=== PATIENT | male | born 1955 | race Hispanic/Latino ===

== ENCOUNTER 2017-05-06 16:49 | Inpatient (IN) | payer SELFPAY ==
[2017-05-06 18:48] LABS: #Eosinphils 0.2 thou/uL (0.0-0.7); #Lymphocytes 2.4 thou/uL (1.20-3.40); #Monocytes 0.7 thou/uL (0.11-0.59); #Neutrophils 5.9 thou/uL (1.40-6.50); %Basophils 0.5 % (0.0-1.0); %Eosinophils 2.3 % (0.0-10.0); %Lymphocytes 25.5 % (21.0-51.0); %Monocytes 7.4 % (0.0-10.0); Hematocrit 46.3 % (42.0-52.0); Mean Platelet Volume 7.9 fL (7.4-10.4); Red Blood Cell (RBC) Count 5.27 mill/uL (4.70-6.10); White Blood Cell (WBC) Count 9.2 thou/uL (4.8-10.8)
[2017-05-06 19:03] LABS: Anion Gap 12 mmol/L (10-20); BUN (Urea Nitrogen) 17 mg/dL (8.4-25.7); Calc. Creatinine Clearance 0 mL/min (70-130); Calcium 9.8 mg/dL (7.8-10.44); Carbon Dioxide 30 mmol/L (23-31); Chloride 99 mmol/L (98-107); Estimated GFR-MDRD 86
[2017-05-06 19:06] LABS: Lactic Acid - Sepsis 1.4 mmol/L (0.5-2.2)
--- NOTE | 2017-05-06 19:10 | ULT ---
ULTRASOUND WITH DOPPLER DUPLEX VENOUS LOWER EXTREMITY RIGHT 05/06/17 CPT: 65780 ICD-10-PCS: B54D HISTORY: Erythema and edema. TECHNIQUE: Color flow Doppler, spectral waveform analysis of pulsed Doppler, and falcon-scale imaging with compre ssion and augmentation, were used to evaluate the right common femoral, femoral, popliteal, posterio r tibial, and superficial femoral, veins; and the proximal portions of the profunda femoral and grea ter saphenous, veins. FINDINGS: Appropriate compressibility and flow within the imaged deep vein system of the right lower extremity . IMPRESSION: No DVT. POS: RASHID
[2017-05-06] MEDS ORDERED: Vancomycin HCl 1.5 GM in Sodium Chloride 0.9% 250 ML 300 ML IVPB SCH (19:15)
[2017-05-06] MEDS ORDERED: Piperacillin/Tazobactam 4.5 GM in Sodium Chloride 0.9% 100 ML IVPB SCH (19:15)
[2017-05-06 19:42] LABS: Bilirubin Negative (Negative); Blood, Urine Trace (Negative); Glucose, Urine (Dipstick) >=1000 mg/dL (Negative); Ketone, Urine Negative (Negative); Nitrite Negative (Negative); Protein, Urine (Dipstick) 300 mg/dL (Neg-Trace); Urobilinogen 0.2 mg/dL (0.2-1.0)
[2017-05-06 19:44] LABS: Bacteria/HPF None Seen HPF (None Seen); Hyaline Casts/LPF 0-3 HYALINE CAST LPF (0-3 Hyaline); RBC/HPF 0-3 HPF (0-3); Squamous Epithelial None Seen HPF (0-3); WBC/HPF 0-3 HPF (0-3)
[2017-05-06 23:40] VITALS: BMI 36.4
[2017-05-07] MEDS: Piperacillin/Tazobactam 4.5 GM in Sodium Chloride 0.9% 100 ML IVPB SCH ×2 (03:11→09:57)
[2017-05-07] MEDS ORDERED: Dextrose 5% in Water 1,000 ML IV PRN (03:18)
[2017-05-07] MEDS ORDERED: Calcium Carbonate 500 MG ChewTAB PO PRN (03:18)
[2017-05-07] MEDS ORDERED: hydrALAZINE 20 MG/ML VIAL SLOW IVP PRN (03:18)
[2017-05-07] MEDS ORDERED: Dextrose 50% Abboject 50 ML SYRINGE SLOW IVP PRN (03:18)
[2017-05-07] MEDS ORDERED: HYDROcodone/Acetaminophen 5/325 mg Tablet PO PRN (03:18)
[2017-05-07] MEDS ORDERED: Ondansetron HCl/PF 4 MG/2 ML Vial IVP PRN (03:18)
[2017-05-07] MEDS ORDERED: Acetaminophen 325 MG TAB PO PRN (03:18)
[2017-05-07] MEDS ORDERED: Potassium Chloride 20 MEQ TAB PO SCH (03:30)
[2017-05-07] MEDS ORDERED: Vancomycin HCl 1 GM in Premix Bag 1 BAG IVPB SCH (03:30)
[2017-05-07] MEDS ORDERED: VANCOMYCIN IVPB PRN (03:31)
[2017-05-07] MEDS: Sodium Chloride 0.9% 1,000 ML IV SCH ×2 (03:40→17:11)
--- NOTE | 2017-05-07 05:25 | HP ---
CHIEF COMPLAINT: Right leg extremity pain and swelling. HISTORY OF PRESENT ILLNESS: This is a 62-year-old pleasant gentleman who was apparently in the [facility] until Wednesday when he started noticing some redness and swelling of right lower ext remity, it worsened on Wednesday and Wednesday, so he started taking his ciprofloxacin, which he had b rought from [place], apparently that did not work and hence, he came into the ER for further evaluati on and treatment. The patient denies any fever or chills. He states the pain is in the right lower extremity. The patient does not know exactly whether he had a bug bite or a scratch, but he though t that there could be aline in the skin which would have probably prompted the starting of the rednes s and the pain. The patient denies any fever, chills, nausea, vomiting, diarrhea, or dysuria right n ow. PAST MEDICAL HISTORY: Significant for diabetes, hypertension, hyperlipidemia, some anxiety, and dep ression. PAST SURGICAL HISTORY: Cholecystectomy. SOCIAL HISTORY: Does not smoke, drink, or do any recreational drugs. ALLERGIES: None. FAMILY HISTORY: Negative for diabetes and hypertension. MEDICATIONS: Include Norvasc, glipizide, Levemir, lisinopril, hydrochlorothiazide, simvastatin. REVIEW OF SYSTEMS: Significant for right lower extremity pain and redness. Patient has no fever, n o chills, no headache, no appetite, no hearing loss, no latencies. No cough, no chest pain, diarrhe a, dysuria, or polyuria. No memory or mood changes. No neck pain. PHYSICAL EXAMINATION: VITAL SIGNS: Blood pressure is 158/79, afebrile right now, pulse is 95, breathing comfortably on ro om air. GENERAL: Patient is lying in bed, in no apparent distress. HEENT: Atraumatic, normocephalic. Pupils equally round, react to light. Extraocular movements are intact. Mucous membranes are moist. NECK: Supple. No JVD. CHEST: Breath sounds. There are no rales or rhonchi. HEART: S1, S2. No murmurs or gallops. ABDOMEN: Soft. EXTREMITIES: Right lower extremity is swollen, tender, and erythematous. Distal pulses are palpabl e. Left leg is normal. NEUROLOGIC: Alert, awake, oriented. No cranial deficits. No sensorimotor deficits. LABORATORY DATA: WBC count is 9.2, hemoglobin is 15, potassium is 3.0, creatinine is 0.9. UA is ne gative. Doppler is negative for DVT. ASSESSMENT AND PLAN: 1. Right lower extremity cellulitis, failed outpatient treatment with Cipro. We will start vancomy irasema, Zosyn, do blood cultures, and give p.r.n. pain medications. 2. Hypokalemia, probably secondary to hydrochlorothiazide use. We will replace potassium. 3. Diabetes mellitus, put him on insulin sliding scale. 4. Hyperlipidemia, stable. 5. I will do Lovenox for deep venous thrombosis prophylaxis. I will follow the labs and do the need for.
[2017-05-07 06:15] LABS: #Basophils 0.1 thou/uL (0.0-0.2); #Eosinphils 0.3 thou/uL (0.0-0.7); #Lymphocytes 2.4 thou/uL (1.20-3.40); #Monocytes 0.6 thou/uL (0.11-0.59); #Neutrophils 6.1 thou/uL (1.40-6.50); %Basophils 0.6 % (0.0-1.0); %Eosinophils 2.8 % (0.0-10.0); %Lymphocytes 25.2 % (21.0-51.0); %Monocytes 6.7 % (0.0-10.0); Hematocrit 43.5 % (42.0-52.0); Mean Platelet Volume 7.4 fL (7.4-10.4); Red Blood Cell (RBC) Count 4.92 mill/uL (4.70-6.10); White Blood Cell (WBC) Count 9.4 thou/uL (4.8-10.8)
[2017-05-07] MEDS: HumaLOG 300 UNITS/3 ML VIAL SC PRN ×3 (06:17→17:00)
[2017-05-07 06:36] LABS: Anion Gap 11 mmol/L (10-20); BUN (Urea Nitrogen) 11 mg/dL (8.4-25.7); Calc. Creatinine Clearance 136 mL/min (70-130); Calcium 8.3 mg/dL (7.8-10.44); Carbon Dioxide 27 mmol/L (23-31); Chloride 102 mmol/L (98-107); Estimated GFR-MDRD Greater than 90; Magnesium 1.9 mg/dL (1.6-2.6)
[2017-05-07] MEDS ORDERED: Piperacillin/Tazobactam 4.5 GM in Sodium Chloride 0.9% 100 ML IVPB SCH (08:00)
[2017-05-07] MEDS: Lisinopril/Hydrochlorothiazide 20/25 mg Tablet PO SCH ×2 (08:27→20:14)
[2017-05-07] MEDS: Amlodipine 10 MG TAB PO SCH (08:27)
[2017-05-07] MEDS: metFORMIN 500 MG TAB PO SCH ×2 (08:27→16:56)
[2017-05-07] MEDS: Enoxaparin Sodium 40 MG/0.4 ML SYRINGE SC SCH (08:28)
[2017-05-07] MEDS ORDERED: FLU VACC QS2017-18 36 mo. & older 0.5 ML SYRINGE IM ONE (09:00)
[2017-05-07] MEDS: Vancomycin HCl 1.5 GM in Sodium Chloride 0.9% 250 ML 300 ML IVPB SCH ×2 (10:45→22:12)
[2017-05-07] MEDS: glipiZIDE 10 MG TAB PO SCH (16:56)
[2017-05-07] MEDS: Simvastatin 20 MG TAB PO SCH (20:14)
[2017-05-07] MEDS: Insulin Detemir 100 UNITS/ML 10 UNITS in Pre-Filled Syringe 1 EACH SC SCH (20:39)
[2017-05-07] MEDS ORDERED: Insulin Detemir 100 UNITS/ML 10 UNITS in Pre-Filled Syringe 1 EACH SC SCH (21:00)
[2017-05-08 03:48] LABS: #Basophils 0.1 thou/uL (0.0-0.2); #Eosinphils 0.3 thou/uL (0.0-0.7); #Lymphocytes 2.8 thou/uL (1.20-3.40); #Monocytes 0.7 thou/uL (0.11-0.59); #Neutrophils 6.1 thou/uL (1.40-6.50); %Basophils 0.8 % (0.0-1.0); %Eosinophils 2.7 % (0.0-10.0); %Lymphocytes 28.3 % (21.0-51.0); %Monocytes 6.8 % (0.0-10.0); Hematocrit 42.6 % (42.0-52.0); Mean Platelet Volume 7.3 fL (7.4-10.4); Red Blood Cell (RBC) Count 4.84 mill/uL (4.70-6.10); White Blood Cell (WBC) Count 9.9 thou/uL (4.8-10.8)
[2017-05-08 04:07] LABS: Anion Gap 8 mmol/L (10-20); BUN (Urea Nitrogen) 9 mg/dL (8.4-25.7); Calc. Creatinine Clearance 142 mL/min (70-130); Calcium 8.4 mg/dL (7.8-10.44); Carbon Dioxide 30 mmol/L (23-31); Chloride 101 mmol/L (98-107); Estimated GFR-MDRD Greater than 90
[2017-05-08] MEDS ORDERED: Potassium Chloride 20 MEQ TAB PO SCH (04:30)
[2017-05-08] MEDS: HumaLOG 300 UNITS/3 ML VIAL SC PRN ×4 (04:38→20:39)
[2017-05-08] MEDS: Aspirin 81 mg Enteric Coated Tablet PO SCH (08:41)
[2017-05-08] MEDS: Potassium Chloride 20 MEQ TAB PO SCH ×2 (08:41→12:44)
[2017-05-08] MEDS: metFORMIN 500 MG TAB PO SCH ×2 (08:41→16:58)
[2017-05-08] MEDS: glipiZIDE 10 MG TAB PO SCH ×2 (08:41→16:58)
[2017-05-08] MEDS: Amlodipine 10 MG TAB PO SCH (08:42)
[2017-05-08] MEDS: Enoxaparin Sodium 40 MG/0.4 ML SYRINGE SC SCH (08:42)
[2017-05-08] MEDS: Sodium Chloride 0.9% 1,000 ML IV SCH (08:42)
[2017-05-08] MEDS: Lisinopril/Hydrochlorothiazide 20/25 mg Tablet PO SCH ×2 (08:42→20:41)
[2017-05-08] MEDS: Insulin Detemir 100 UNITS/ML 10 UNITS in Pre-Filled Syringe 1 EACH SC SCH ×2 (08:43→20:41)
[2017-05-08 09:10] LABS: Vancomycin, Trough 11.3 ug/mL
[2017-05-08] MEDS: Vancomycin HCl 1.5 GM in Sodium Chloride 0.9% 250 ML 300 ML IVPB SCH ×2 (09:46→17:32)
--- NOTE | 2017-05-08 13:54 | PRG ---
DATE OF SERVICE: 05/08/2017 SUBJECTIVE: The patient is seen and examined at bedside. He is ready to eat his lunch. He has goo d appetite. He does not have much complaints to offer. OBJECTIVE: VITAL SIGNS: Blood pressure is 145/81, pulse is 77, and temperature is 98.2. Maximal temperature i s 99.5 yesterday, respiratory rate is 20, pulse oximetry is 95% on room air. GENERAL APPEARANCE: He is not in any distress during my visit. HEENT: His head is atraumatic and normocephalic. Sclerae nonicteric. Oral mucosa is moist. NECK: Supple. LUNGS: Clear. HEART: S1 and S2 normal. ABDOMEN: Soft, obese, nontender. EXTREMITIES: Right lower extremity above the ankle and intermediate to the knee, it is still erythematou s, swollen. The edge is diminished and it looks like he is responding to the treatment. NEUROLOGIC: He is alert and oriented x4. There are no sensorimotor deficits. Cranial nerves are i ntact. LABORATORY DATA: Showed normal white count, normal hemoglobin and hematocrit. His potassium is ericka n to 2.6, sodium 136, chloride 101, CO2 30, BUN 9, creatinine 0.77, glucose 156, is ranging from 148 -233, calcium is 8.4. Vancomycin trough 11.3. Microbiology is growing Staphylococcus negative in 1 out of the 2 sets. ASSESSMENT AND PLAN: 1. Right lower extremity cellulitis, failed outpatient treatment with Cipro. He is on vancomycin a t this point. 2. Hypokalemia is probably related to diabetes and hydrochlorothiazide use. He is scheduled for pl acement several doses today. We will check his numbers tomorrow. 3. Diabetes mellitus. We are going to increase his metformin to 1000 mg twice a day and continue h is long-acting insulin twice a day along with glipizide. 4. Hyperlipidemia, stable. Plan as mentioned above. Continue Zosyn and vancomycin. One out of two cultures growing coagulase negative Staphylococcus, we should have more information about this tomorrow. This could be contami nation. We will continue DVT prophylaxis with SCDs and Lovenox.
[2017-05-08] MEDS: Piperacillin/Tazobactam 3.375 GM in Sodium Chloride 0.9% 100 ML IVPB SCH ×2 (14:39→19:41)
[2017-05-08] MEDS: Simvastatin 20 MG TAB PO SCH (20:42)
[2017-05-09] MEDS: Piperacillin/Tazobactam 3.375 GM in Sodium Chloride 0.9% 100 ML IVPB SCH ×2 (01:29→08:30)
[2017-05-09] MEDS: Vancomycin HCl 1.5 GM in Sodium Chloride 0.9% 250 ML 300 ML IVPB SCH ×2 (02:20→10:47)
[2017-05-09 03:59] LABS: Anion Gap 13 mmol/L (10-20); BUN (Urea Nitrogen) 10 mg/dL (8.4-25.7); Calc. Creatinine Clearance 133 mL/min (70-130); Calcium 8.4 mg/dL (7.8-10.44); Carbon Dioxide 27 mmol/L (23-31); Chloride 103 mmol/L (98-107); Estimated GFR-MDRD Greater than 90
[2017-05-09 04:41] LABS: Magnesium 1.7 mg/dL (1.6-2.6)
[2017-05-09] MEDS: Sodium Chloride 0.9% 1,000 ML IV SCH (04:41)
[2017-05-09] MEDS: Insulin Detemir 100 UNITS/ML 10 UNITS in Pre-Filled Syringe 1 EACH SC SCH ×2 (08:30→20:38)
[2017-05-09] MEDS: Enoxaparin Sodium 40 MG/0.4 ML SYRINGE SC SCH (08:31)
[2017-05-09] MEDS: metFORMIN 500 MG TAB PO SCH ×2 (08:34→16:05)
[2017-05-09] MEDS: glipiZIDE 10 MG TAB PO SCH ×2 (08:34→16:05)
[2017-05-09] MEDS: Lisinopril/Hydrochlorothiazide 20/25 mg Tablet PO SCH ×2 (08:36→20:40)
[2017-05-09] MEDS: Aspirin 81 mg Enteric Coated Tablet PO SCH (08:37)
[2017-05-09] MEDS: Amlodipine 10 MG TAB PO SCH (08:37)
[2017-05-09 09:27] LABS: Vancomycin, Trough 26.9 ug/mL
[2017-05-09 12:15] LABS: Anion Gap 12 mmol/L (10-20); BUN (Urea Nitrogen) 10 mg/dL (8.4-25.7); Calc. Creatinine Clearance 128 mL/min (70-130); Calcium 8.8 mg/dL (7.8-10.44); Carbon Dioxide 26 mmol/L (23-31); Chloride 103 mmol/L (98-107); Estimated GFR-MDRD Greater than 90
[2017-05-09] MEDS ORDERED: Potassium Chloride 20 MEQ TAB PO SCH ×2 (12:30→15:00)
[2017-05-09] MEDS ORDERED: Saccharomyces boulardii 250 MG CAP PO SCH (12:45)
--- NOTE | 2017-05-09 13:02 | PRG ---
DATE OF SERVICE: 05/09/2017 SUBJECTIVE: The patient seen and examined at the bedside. He is doing significantly better, but he has some diarrhea. He had to go to the bathroom twice this morning. No blood or mucus. No black stools. OBJECTIVE: VITAL SIGNS: Blood pressure is 150/78, pulse is 70, temperature is 98.1, respiratory rate is 18, O2 saturation is 96% on room air. HEENT: His head is atraumatic, normocephalic. Eyes are PERRLA. Conjunctivae pink. Oral mucosa is moist. NECK: Thyroid is not palpable. LUNGS: Clear, no wheezing. HEART: S1, S2 normal, no S3, no S4. ABDOMEN: Obese, nontender, soft. EXTREMITIES: Right lower extremity with some cellulitis, but improving. The swelling is decreased and the redness is decreased. NEUROLOGIC: He is alert and oriented x4. There is no sensorimotor deficits present. Cranial nerve s are intact. LABORATORY DATA: Showed sodium of 138, potassium 3.0, chloride 103, CO2 26, BUN 10, creatinine 0.85 . Glycemia is ranging from 129-186, calcium 8.8 and vancomycin trough 26.9. Blood cultures 1/2 mark ws coagulase-negative Staphylococcus aureus growth which is most likely contamination. IMPRESSION: 1. Right lower extremity cellulitis, improved on vancomycin and Zosyn, but the patient is having so me diarrhea which is probably secondary to antibiotic use, it is not watery to the point that we wou ld check him for Clostridium difficile, but is most likely side effect of antibiotic use, so we stop ped his vancomycin and Zosyn. We will switch him to Omnicef. 2. Hypokalemia. Again, the patient requires 2 doses of potassium chloride 40 mg each today. We ar e going to give him an additional dose at the end of the day 40 mEq. 3. Diabetes mellitus, quite well controlled. 4. Hyperlipidemia. Plan as mentioned above, switch him to oral Omnicef, start probiotics, check hi s potassium level tomorrow and continue deep venous thrombosis prophylaxis and with sequential compr essive devices and Lovenox.
[2017-05-09] MEDS: HumaLOG 300 UNITS/3 ML VIAL SC PRN (16:13)
[2017-05-09] MEDS ORDERED: Vancomycin HCl 1.75 GM in Sodium Chloride 0.9% 500 ML IVPB SCH (18:00)
[2017-05-09] MEDS: Simvastatin 20 MG TAB PO SCH (20:39)
[2017-05-09] MEDS: Saccharomyces boulardii 250 MG CAP PO SCH (20:40)
[2017-05-10 04:59] LABS: Anion Gap 12 mmol/L (10-20); BUN (Urea Nitrogen) 9 mg/dL (8.4-25.7); Calc. Creatinine Clearance 151 mL/min (70-130); Calcium 8.7 mg/dL (7.8-10.44); Carbon Dioxide 28 mmol/L (23-31); Chloride 102 mmol/L (98-107); Estimated GFR-MDRD Greater than 90; Magnesium 1.9 mg/dL (1.6-2.6); Phosphorus 2.8 mg/dL (2.3-4.7)
[2017-05-10] MEDS ORDERED: Potassium Chloride 20 MEQ TAB PO SCH (05:15)
[2017-05-10] MEDS: Enoxaparin Sodium 40 MG/0.4 ML SYRINGE SC SCH (08:29)
[2017-05-10] MEDS: Saccharomyces boulardii 250 MG CAP PO SCH (08:30)
[2017-05-10] MEDS: Insulin Detemir 100 UNITS/ML 10 UNITS in Pre-Filled Syringe 1 EACH SC SCH (08:30)
[2017-05-10] MEDS: Amlodipine 10 MG TAB PO SCH (08:31)
[2017-05-10] MEDS: Aspirin 81 mg Enteric Coated Tablet PO SCH (08:31)
[2017-05-10] MEDS: metFORMIN 500 MG TAB PO SCH ×2 (08:31→17:44)
[2017-05-10] MEDS: glipiZIDE 10 MG TAB PO SCH ×2 (08:31→17:44)
[2017-05-10] MEDS: Potassium Chloride 20 MEQ TAB PO SCH ×3 (08:32→17:44)
[2017-05-10] MEDS ORDERED: Lisinopril 20 MG TAB PO SCH (09:00)
[2017-05-10] MEDS ORDERED: Saccharomyces boulardii 250 MG CAP PO SCH (09:00)
[2017-05-10 17:56] VITALS: BP 166/86; TEMP 97.6
--- NOTE | 2017-05-10 18:30 | DIS ---
DATE OF DISCHARGE: 05/10/2017 DISCHARGE DISPOSITION: Home. FOLLOWUP: Follow up with primary care physician Kathy Jacob PA-C, in 2-3 days. Base met in 2 days is recommended. Primary care physician is advised to follow. ALLERGIES: No known drug allergies. DISCHARGE MEDICATIONS: Keflex 500 mg 3 times daily, doxycycline 100 mg b.i.d., Levemir 10 units b.i .d., lisinopril 20 mg b.i.d., potassium chloride 20 mEq 3 times daily, simvastatin 10 mg at bedtime, glipizide 10 mg b.i.d., metformin 500 mg b.i.d., amlodipine 10 mg daily, aspirin 81 mg daily. INPATIENT CONSULTANTS: None. BRIEF HOSPITAL COURSE: The patient is a 62-year-old male with diabetes mellitus type 2, hypertensio n, and hyperlipidemia, who presented to the emergency room with swelling and pain of the right lower extremity. He was on ciprofloxacin orally on admission. Please refer to the history and physical dated 05/06/2017 for further details. The patient was admitted to the hospital with a diagnosis of right lower extremity cellulitis. He w as placed on empiric antibiotics that has been changed to oral. His CRP on admission was 4.15. He appears stable for discharge. FINAL DIAGNOSES: 1. Right lower extremity cellulitis. The patient failed outpatient therapy. 2. Hypokalemia. 3. His potassium and on the day of discharge is 3.4. Repeat labs in 2-3 days is recommended. [facility] care physician is advised to follow. 4. Diabetes mellitus, type 2. 5. Hyperlipidemia. 6. Obesity with a BMI of 36.4 7. Elevated inflammatory markers secondary to cellulitis. CRP was 4.1. The patient was seen and examined on the day of discharge, denies any new complaints. DIAGNOSTIC TESTS: Right lower extremity Doppler was negative for deep venous thrombosis. Plan of care was discussed with the patient. He stated understanding.
[2017-05-10] MEDS ORDERED: Cefdinir 300 MG CAP PO SCH (21:00)
== END 2017-05-10 18:01 | disposition home or self-care (01) | DRG 603 ==
LOC: ERS 16:49 → ONC 20:00
PROVIDERS: ADMIT Internal Medicine; ATTEND Internal Medicine
DX: L03.115 Cellulitis of right lower limb (principal); E11.9 Type 2 diabetes mellitus without complications; E87.6 Hypokalemia; E66.9 Obesity, unspecified; Z68.34 Body mass index [BMI] 34.0-34.9, adult; E78.5 Hyperlipidemia, unspecified; F41.9 Anxiety disorder, unspecified
CPT/HCPCS: 36415; 36416; 80048; 80202; 81003; 81015; 83605; 83735; 84100; 85025; 85652; 86140; 87040; 87149; 96365; 96367; J1650; J1815; J2543; J3370; J7050

== ENCOUNTER 2023-02-08 15:32 | Outpatient (CLI) | payer OTHER | END 2023-02-08 15:33 | disposition home or self-care (01) | LOC: ULT 15:32 | PROVIDERS: ATTEND Family Medicine | DX: E07.9 Disorder of thyroid, unspecified (principal) | CPT/HCPCS: 76536 ==